=== PATIENT | female | born 1950 | race Caucasian/White ===

== ENCOUNTER 2020-06-21 14:12 | Outpatient (CLI) | payer MEDICARE, SELFPAY ==
--- NOTE | 2020-06-21 14:30 | ECG_ITS ---
Measurements Intervals [place] Rate: 86 P: -3 NH: 159 QRS: -64 QRSD: 136 T: 83 QT: 385 QTc: 462 Interpretive Statements SINUS OR ECTOPIC ATRIAL RHYTHM RIGHT BUNDLE BRANCH BLOCK LEFT ANTERIOR FASCICULAR BLOCK LEFT VENTRICULAR HYPERTROPHY AND ST-T CHANGE BASELINE WANDER- I, AVL, AVF, V1-V3 ABNORMAL ECG Electronically Signed On 06-21-2020 15:21:44 CDT by Williams Fletcher D.O.
== END 2020-06-21 14:13 | disposition home or self-care (01) ==
PROVIDERS: PCP Family Medicine; Visit Provider Family Medicine
DX: I10 Essential (primary) hypertension (principal)
CPT/HCPCS: 93005

== ENCOUNTER 2021-05-27 11:10 | Emergency (ER) | payer MEDICARE, SELFPAY ==
--- NOTE | ~2021-05-27 | XR_ITS ---
EXAMINATION: XR foot RT min 3V DATE: 05/27/2021 14:54 INDICATION: Right foot injury. TECHNIQUE: 4 views of right foot were obtained. COMPARISON: None. FINDINGS: Bone alignment is normal. No fracture. There is mild osteoporosis of first metatarsophalang eal joint and many of the interphalangeal joints and midfoot joints. There are enthesophytes at the p osterior and plantar aspects of calcaneal tuberosity. IMPRESSION: 1. Mild polyarticular osteoarthritis. Reviewed, dictated and finalized at location A.
--- NOTE | ~2021-05-27 | XR_ITS ---
EXAMINATION: XR tibia fibula RT 2V DATE: 05/27/2021 14:55 INDICATION: Right lower leg injury. TECHNIQUE: 2 views of right tibia and fibula on 4 radiographs were obtained. COMPARISON: None. FINDINGS: Bone alignment is normal. No fracture. There is mild right knee osteoarthritis. There is mi ld osteoarthritis of the midfoot. There are enthesophytes at the posterior and plantar aspects of uzma caneal tuberosity. There is soft tissue swelling of the foot and ankle. IMPRESSION: 1. Mild polyarticular osteoarthritis. Reviewed, dictated and finalized at location A.
--- NOTE | 2021-05-27 14:25 | ED.LOWEXIN ---
HPI - Extremity Injury (Lower) General Chief Complaint: Extremity Injury, Lower Stated Complaint: R LEG AND FOOT PAIN Time Seen by Provider: 05/27/21 14:25 Source: patient Mode of arrival: wheelchair Limitations: no limitations History of Present Illness HPI Narrative: 70-year-old woman with a history of asthma and type 2 diabetes comes in today complaining of right leg and ankle pain that started yesterday approximately 5:00 p.m.. Patient states that she was transferring up stairs into her home when she fell and her right leg got caught between her wheelchair and the wall. She was able to get up and has been resuming except for weight-bearing on the right leg. She denies any other injuries and has no numbness or decreased range of motion and her right leg. She has no history of right leg fracture or surgeries. MD complaint: leg injury Injury: Right: ankle Type of Injury: blunt Place: home Severity: moderate Relieving factors: rest Exacerbating factors: weight bearing and palpation Context: fall Associated symptoms: swelling and unable to bear weight Other symptoms: none Treatments prior to arrival: other ( Home pain medication this morning: Tylenol No. 4) Related Data Home Medications Medication Instructions Recorded Confirmed albuterol sulfate 90 mcg/actuation 2 puff INHALATION Q4H PRN g 11/20/20 05/26/21 aerosol inhaler alirocumab 150 mg/mL subcutaneous 150 mg SUBCUT ONCE 11/20/20 05/26/21 pen injector aspirin 81 mg tablet,delayed 162 mg PO DAILY tablet 11/20/20 05/26/21 release blood glucose control, normal #1 ea 11/20/20 05/26/21 blood sugar diagnostic #10 ea 11/20/20 05/26/21 blood-glucose meter, wireless #1 ea 11/20/20 05/26/21 budesonide 0.5 mg/2 mL suspension 0.5 mg INHALATION DAILY 11/20/20 05/26/21 for nebulization duloxetine 20 mg capsule,delayed 20 mg PO BID 11/20/20 05/26/21 release fluticasone propionate 93 1 spray INTRANASAL Q12H 11/20/20 05/26/21 mcg/actuation breath activated aerosol formoterol fumarate 20 mcg/2 mL 20 mcg INHALATION ONCE 11/20/20 05/26/21 solution for nebulization infusion set for insulin pump #10 ea 11/20/20 05/26/21 insulin regular hum U-500 conc 500 25 unit SUBCUT QACDINNER 11/20/20 05/26/21 unit/mL subcutaneous soln latanoprost (PF) 0.005 % eye drops 1 drp EACH EYE DAILY 11/20/20 05/26/21 mometasone-formoterol HFA 200 2 puff INHALATION BID 11/20/20 05/26/21 mcg-5 mcg/actuation aerosol inhaler montelukast 10 mg tablet 10 mg PO DAILY 11/20/20 05/26/21 eqfrvtiedzxe-ttijylse-ybymno tablet 1 tablet PO DAILY 11/20/20 05/26/21 alirocumab 150 mg/mL subcutaneous mg SUBCUT 05/26/21 05/26/21 syringe aspirin 81 mg chewable tablet 81 mg PO DAILY 05/26/21 05/26/21 diphenhydramine HCl 25 mg tablet 25 mg PO Q6H PRN 05/26/21 05/26/21 losartan 50 mg tablet 50 mg PO DAILY 05/26/21 05/26/21 Allergies Allergy/AdvReac Type Severity Reaction Status Date / Time amoxicillin [Amoxil] Allergy Intermediate unknown Verified 05/26/21 13:40 cephalexin [Keflex] Allergy Intermediate unknown Verified 05/26/21 13:40 cyclobenzaprine [Flexeril] Allergy Intermediate unknown Verified 05/26/21 13:40 insulin isophane (NPH) Allergy Intermediate unknown Verified 05/26/21 13:40 [Novolin 70/30 U-100 Insulin] insulin regular Allergy Intermediate unknown Verified 05/26/21 13:40 [Novolin 70/30 U-100 Insulin] nabumetone [Relafen] Allergy Intermediate unknown Verified 05/26/21 13:40 Penicillins Allergy Intermediate unknown Verified 05/26/21 13:40 Yigpktc-Tfr-Bgx Reductase Allergy Intermediate unknown Verified 05/26/21 13:40 Inhibitor IVP dye Allergy Intermediate unknown Uncoded 05/26/21 13:40 Review of Systems Review of Systems: All systems reviewed & are unremarkable except as noted in HPI and below Constitutional: Constitutional: Denies chills and Denies fever(s) Eyes: Eyes: Denies change in vision and Denies photophobia ENT: Denies nasal congestion and Denies sore throat Card
[2021-05-27 15:07] VITALS: BP 132/74; PULSE 106; RESP 20; TEMP 37; O2SAT 100
[2021-05-27 15:32] VITALS: BP 133/79; PULSE 106; RESP 20; TEMP 36.8; O2SAT 99
== END 2021-05-27 15:45 | disposition home or self-care (01) ==
PROVIDERS: Emergency Provider Emergency Medicine; PCP Family Medicine
DX: S80.11XA Contusion of right lower leg, initial encounter (principal); S93.401A Sprain of unspecified ligament of right ankle, initial encounter; W19.XXXA Unspecified fall, initial encounter; I10 Essential (primary) hypertension; E11.9 Type 2 diabetes mellitus without complications
CPT/HCPCS: 73590; 73630; 99282; 99284; L2112

== ENCOUNTER 2021-08-19 12:46 | Outpatient (CLI) | payer MEDICARE, SELFPAY ==
--- NOTE | ~2021-08-19 | US_ITS ---
EXAMINATION: US retroperitoneal comp EXAM DATE: 08/19/2021 13:35 INDICATION: Pelvic and Perineal Pain, Hematuria TECHNIQUE: Multiple grayscale and Doppler images of the kidneys, retroperitoneum were obtained (by a technologist who performed the scan) and subsequently reviewed. There is no prior study for comparis on. FINDINGS: Limited evaluation from patient's body habitus. Right kidney: There is normal contour and echogenicity. It measures 11.3 x 4.9 x 7.0 centimeters. T here are no focal renal lesions identified. Mild hydronephrosis versus extrarenal pelvis. Left kidney: There is normal contour and echogenicity. It measures 10.8 x 5.7 x 5.8 centimeters. Th ere are no focal renal lesions identified. There is no hydronephrosis. Bladder unremarkable. IMPRESSION: Mild right hydronephrosis versus extrarenal pelvis. Reviewed, dictated and finalized at location B. ICAL INVESTIGATOR
--- NOTE | ~2021-08-19 | US_ITS ---
EXAMINATION: US pelvic complete EXAM DATE: 08/19/2021 13:35 INDICATION: Pelvic and Perineal Pain, Hematuria . TECHNIQUE: Pelvic transabdominal sonogram was performed. There are multiple grayscale and Doppler im ages available for interpretation. There is no prior study for comparison. FINDINGS: Uterus measures 10.1 x 5.0 x 6.3 cm, is anteverted with endometrial region measuring 32 cm in thickness, markedly thickened. Differential diagnosis for this includes endometrial cancer, endom etrial polyp, pedunculated submucosal fibroid. There is no free pelvic fluid. Right adnexa: The ovary is not identified. There is no adnexal mass. Left adnexa: The ovary is not identified. There is no adnexal mass. IMPRESSION: Markedly thickened endometrial measurement, differential diagnosis including cancer, poly p, hyperplasia, pedunculated fibroid. Recommend HEAD BOOKKEEPER consult, histologic correlation. If patient has k nown history of fibroids, could consider MRI pelvis without and with contrast to evaluate that possib ility. Reviewed, dictated and finalized at location B. L ORDER CUTTER IMPRESSION: Markedly thickened endometrial measurement, differential diagnosis including cancer, polyp, hyperplasia, pedunculated fibroid. Recommend HEAD BOOKKEEPER consu lt, histologic correlation. If patient has known history of fibroids, could con reel system operator MRI pelvis without and with contrast to evaluate that possibility.
== END 2021-08-19 12:47 | disposition home or self-care (01) ==
PROVIDERS: PCP Family Medicine; Visit Provider Family Medicine
DX: R31.9 Hematuria, unspecified (principal)
CPT/HCPCS: 76770; 76856; 88112

== ENCOUNTER 2021-12-01 14:49 | Outpatient (CLI) | payer MEDICARE, SELFPAY ==
--- NOTE | ~2021-12-01 | XR_ITS ---
XR chest 2V DATE: 12/01/2021 15:58 INDICATION: Shortness of breath TECHNIQUE: AP and lateral views COMPARISON: 05/29/2019 2 view chest FINDINGS: There is chronic prominent elevation right leaf of the diaphragm, stable since 05/29/2019. There is mild right basilar atelectasis The lungs are otherwise clear. No pleural effusion or pulmonary vascular congestion or pneumothorax. Heart size is within normal limits. Aortic arch calcification. Diffuse osteopenia. There is dextroscoliosis and degenerative change of the thoracic spine. IMPRESSION: Chronic elevation of right diaphragm and right basilar atelectasis Reviewed, dictated and finalized at location A. LEAD FORMER
--- NOTE | ~2021-12-01 | XR_ITS ---
EXAMINATION: XR abdomen obstructive series DATE: 12/01/2021 15:58 INDICATION: Generalized abdominal pain TECHNIQUE: Supine and upright views of the abdomen. FINDINGS: No prior studies for comparison. The visualized lung parenchyma is normal.. There is a nonobstructive bowel gas pattern. Gas and stool are seen throughout the colon to the level of the rectum. There is no free air. There are multiple calcifications in the upper abdomen, possibly sequela of chronic pancreatitis. There is a radiopaque device overlying the upper abdomen of uncertain etiology. Clinically correlate. IMPRESSION: 1. Nonobstructive bowel gas pattern. 2: Indeterminate calcifications central upper abdomen, possibly sequela of chronic pancreatitis. Reviewed, dictated and finalized at location A. GENICS ENGINEER IMPRESSION: 1. Nonobstructive bowel gas pattern. 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
[2021-12-01 15:13] LABS: Basophils Absolute Auto 0.05 K/mm3 (0.00-0.10); Basophils Percent Auto 0.4 % (0.0-1.0); Eosinophils Percent Auto 1.8 % (1.0-6.0); Hematocrit 36.8 % (35.0-42.0); Hemoglobin 11.5 g/dL (11.7-13.8); Immature Granulocyte Absolute 0.07 K/mm3 (0.00-0.00); Immature Granulocyte Percent A 0.6 % (0.0-0.0); Lymphocytes Absolute Auto 1.65 K/mm3 (1.10-4.50); Lymphocytes Percent Auto 14.7 % (18.0-42.0); Mean Corpuscular HGB Conc 31.3 g/dL (32.0-36.0); Mean Corpuscular Hemoglobin 31.8 pg (27.0-31.0); Mean Corpuscular Volume 101.7 fL (78.0-102.0); Monocytes Absolute Auto 1.14 K/mm3 (0.10-0.90); Monocytes Percent Auto 10.2 % (2.0-11.0); Neutrophils Absolute Auto 8.1 K/mm3 (1.7-7.2); Neutrophils Percent Auto 72.3 % (50.0-70.0); Platelet Count Result 454 K/mm3 (150-420); Red Blood Count 3.62 M/mm3 (4.20-5.40); Red Cell Distribution Width 13.5 % (11.6-14.4); White Blood Count 11.2 K/mm3 (4.8-10.8)
[2021-12-01 15:34] LABS: Alanine Aminotransferase 25 U/L (14-59); Albumin Level 2.9 g/dL (3.4-5.0); Alkaline Phosphatase 56 U/L (46-116); Amylase 18 U/L (25-115); Anion Gap 11 mmol/L (8-16); Aspartate Amino Transferase 28 U/L (15-37); Bilirubin,Total 0.2 mg/dL (0.00-1.00); Blood Urea Nitrogen 10 mg/dL (7-18); Calcium 8.6 mg/dL (8.5-10.1); Carbon Dioxide 29 mmol/L (21-32); Chloride 102 mmol/L (98-108); Estimated Glomerular Filt Rate > 60; Glucose 174 mg/dL (70-99); Lipase 76 U/L (73-393); Osmolality Calculated 297 mOsm/kg (285-295); Potassium 4.7 mmol/L (3.5-5.1); Sodium 142 mmol/L (136-145); Total Protein 6.3 g/dL (6.4-8.2)
[2021-12-01 15:44] LABS: Add Urine Microscopic? YES; Appearance Urine Sl Cloudy (Clear); Bilirubin Urine Negative (Negative); Blood Urine 2+ (Negative); Color Urine Dark Yellow (Yellow); Glucose Urine UA Negative (Negative); Ketones Urine Negative (Negative); Leukocyte Esterase Ur Negative LEU/UL (Negative); Nitrate Urine Negative (Negative); Protein Urine 1+ (Negative); Specific Grav Ur >= 1.030 (1.010-1.020); Urobilinogen Urine 0.2 mg/dL (0.2-1.0)
[2021-12-01 15:52] LABS: Bacteria Urine 2+ /hpf; Mucus Urine Moderate /lpf; Renal Epithelial Cells Urine Few /hpf; Squamous Epithelial Cell Urine Moderate /hpf (Few); WBC Urine None seen /hpf (0-3)
[2021-12-01 16:05] LABS: SARS-CoV-2 Ag Negative (Negative)
== END 2021-12-01 14:50 | disposition home or self-care (01) ==
PROVIDERS: PCP Family Medicine; Visit Provider Family Medicine
DX: R10.84 Generalized abdominal pain (principal); R06.02 Shortness of breath
CPT/HCPCS: 36415; 71046; 74019; 80053; 81001; 82150; 83690; 85025; 87426; C9803

== ENCOUNTER 2021-12-03 08:07 | Outpatient (CLI) | payer MEDICARE, SELFPAY ==
--- NOTE | ~2021-12-03 | CT_ITS ---
EXAMINATION: CT abdomen pelvis wo con DATE: 12/03/2021 10:21 INDICATION: Abdominal pain and bloating TECHNIQUE: Computed tomography (CT) of the abdomen and pelvis was performed without intravenous contr ast. Automated exposure control and iterative reconstruction technique were employed. Exam dose: 161 6.53 mGy-cm total exam DLP. COMPARISON: December 01, 2021 obstructive series FINDINGS: The lung bases are clear. There is prominent ascites. Soft tissue detail is limited but there is surface nodularity of liver consistent with cirrhosis. No obvious hepatic space-occupying mass lesion is evident on this limited noncontrast examination. Splen ic size appears within normal range. There are extensive pancreatic calcifications consistent with chronic pancreatitis. No bile duct or pancreatic duct dilatation is detected. There appear to be some stones at the neck of the gallbladder. Normal morphology of the adrenal glands. No renal mass lesion is evident on this limited noncontrast examination. No urinary tract calculus or hydroureteronephrosis. The urinary bladder is unremarkable. Diverticulosis of the colon; no apparent diverticulitis. No bowel obstruction or intraperitoneal free air. There is atherosclerotic calcification of the abdominal aorta but no aneurysm. No intraperitoneal or retroperitoneal or pelvic mass lesion or adenopathy. Prominent multilevel degenerative disc disease of the lumbar spine. Degenerative spurring of the thor acic spine. IMPRESSION: Cirrhosis, chronic pancreatitis and prominent ascites Probable cholelithiasis Diverticulosis of the colon Reviewed, dictated and finalized at Location A. Reviewed, dictated and finalized at location A. RIAL MARKER DESIGNER
== END 2021-12-03 08:08 | disposition home or self-care (01) ==
PROVIDERS: PCP Family Medicine; Visit Provider Family Medicine
DX: R10.9 Unspecified abdominal pain (principal); R14.0 Abdominal distension (gaseous)
CPT/HCPCS: 74176

== ENCOUNTER 2021-12-25 12:22 | Outpatient (CLI) | payer MEDICARE, SELFPAY ==
--- NOTE | ~2021-12-25 | CT_ITS ---
EXAMINATION: CT chest abdomen pelvis wo con EXAM DATE: 12/25/2021 13:07 INDICATION: Abdominal pain/dysphagia TECHNIQUE: Spiral CT of the chest, abdomen and pelvis was performed without contrast. Axial, rene l and sagittal images chest, abdomen and pelvis were reviewed. Coronal maximum intensity pixel image s of chest reviewed. The dose-length product (DLP) for this examination was 2047.61 mGy-cm. The exp osure was tailored according to patient size (auto mA exposure control), and iterative reconstruction (ASIR) was used as additional dose reduction technique. Comparison is made to prior examination from 12/03/2021. FINDINGS: CHEST: The lungs are clear. There are no pleural or pericardial effusions. Tracheobronchial tree is patent. There is no mediastinal, hilar or axillary lymphadenopathy. There is no pneumothorax. Heart normal in size. Dense mitral annular calcifications. Some aortic valve calcifications. There is mild coronary arterial calcification, arterial sclerosis. ABDOMEN PELVIS: Limitations, portions of the abdominal wall not imaged due to size. Pancreatic calci fications, probable pancreatic duct stones. Chronic pancreatitis. Cirrhosis. There is vague low-densi ty 2.5 cm region at the left liver lobe medial segmental dome. Moderate amount of ascites. Cholelithi asis. Spleen, right adrenal gland unremarkable. Left adrenal gland adenomas. Gallbladder is unremark able. No biliary obstruction. There is punctate left nephrolithiasis. Endometrium may be thickened up to 2.2 cm, could be hyperplasia or cancer. The bladder is unremarkable. There is no retroperito ryan or pelvic lymphadenopathy. There is moderate to severe scattered arteriosclerotic disease. Appendix is not identified. Mild scattered colonic diverticulosis. Sensitivity for diverticulitis rob ited from the ascites. The stomach and small bowel are unremarkable. There is expected amount of co lonic stool. No free intraperitoneal gas. There are no osteoblastic or osteolytic lesions identif ied. Old left rib fracture. IMPRESSION: 1. Cirrhosis, moderate ascites. 2. Indeterminate low-density segment 4A lesion, could be focal hepatic steatosis but hepatocellular cancer or other mass not excludable. 3. Suspect thickened endometrium, endometrial cancer or hyperplasia. 4. Scattered colonic diverticulosis. 5. Chronic pancreatitis. 6. No acute cardiopulmonary findings. Reviewed, dictated and finalized at location G. IMPRESSION: 1. Cirrhosis, moderate ascites. 2. Indeterminate low-density segment 4A lesion, could be focal hepatic steatos is but hepatocellular cancer or other mass not excludable. 3. Suspect thickened endometrium, endometrial cancer or hyperplasia. 4. Scattered colonic diverticulosis. 5. Chronic pancreatitis. 6. No acute cardiopulmonary findings.
== END 2021-12-25 12:23 | disposition home or self-care (01) ==
LOC: CHSIMG 12:23
PROVIDERS: PCP Family Medicine; Visit Provider Family Medicine
DX: R10.9 Unspecified abdominal pain (principal); R13.10 Dysphagia, unspecified
CPT/HCPCS: 71250; 74176